=== PATIENT | male | born 1980 | race Caucasian/White ===

== ENCOUNTER 2018-01-12 11:57 | Emergency (ER) | payer SELFPAY ==
[~2018-01-12] VITALS: Ht 167.6 cm; Wt 80.0 kg
[2018-01-12 12:05] VITALS: BP 125/74; PULSE 64; RESP 16; TEMP 98.5; O2SAT 98
[2018-01-12] MEDS ORDERED: PENI500T PO (13:01)
--- NOTE | 2018-01-12 13:02 | PD ---
HPI Chief Complaint: Oral / Dental Pain or Problem Time Seen by Provider: 12:54 Travel History International Travel<30 days: No Contact w/Intl Traveler<30days: No Traveled to known affect area: No History of Present Illness HPI 37-year-old male presents emergency department with pain and swelling to the left lower jaw secondary to dental abscess. He states it has been present approximate 4 days. He has been taking [id number] ibuprofen. He had increased sinus congestion and headache today which is why he came in to be seen today. He denies fever, chills, or difficulty swallowing. He is requesting no narcotics as he is in treatment. Pain is currently about a 7 out of 10. He has no known drug allergies. [facility] Social History Alcohol Use: No Tobacco Use: No Substance Use: No Allergies-Medications (Allergen,Severity, Reaction): Coded Allergies: No Known Allergies (Unverified , 01/12/18) Reported Meds & Prescriptions Reported Meds & Active Scripts Active Penicillin V Potassium 500 Mg Tab 500 Mg PO Q6H 10 Days Review of Systems Except as stated in HPI: all other systems reviewed are Neg General / Constitutional: No: Fever Eyes: No: Visual changes HENT: Positive: Congestion, Dental Difficulties, No: Headaches, Vertigo, Lightheadedness, Sore Throat, Rhinitis, Rhinorrhea, Nosebleed, Neck Stiffness, Neck Pain, Earache Cardiovascular: No: Chest Pain or Discomfort Respiratory: No: Shortness of Breath Gastrointestinal: No: Abdominal Pain Genitourinary: No: Dysuria Musculoskeletal: No: Pain Skin: No Rash Neurologic: No: Weakness Psychiatric: No: Depression Endocrine: No: Polydipsia Hematologic/Lymphatic: No: Easy Bruising Physical Exam Narrative GENERAL: Patient appears in mild distress. SKIN: Warm and dry. Normal color. Normal turgor. No erythema. No rash. HEAD: Atraumatic. Normocephalic. Patient is swelling over the left lower jaw. EYES: Pupils equal and round. No scleral icterus. No injection or drainage. ENT: No nasal bleeding or discharge. Mucous membranes pink and moist. TMs are clear bilaterally. Patient has poor dental health with multiple caries and lost teeth. He has a obvious abscess to the left lower jaw involving the #17 tooth. Airways patent. Pharynx is clear. NECK: Trachea midline. Supple and nontender without significant lymphadenopathy. CARDIOVASCULAR: Regular rate and rhythm. RESPIRATORY: No accessory muscle use. Clear to auscultation. Breath sounds equal bilaterally. MUSCULOSKELETAL: Extremities without clubbing, cyanosis, or edema. No obvious deformities. NEUROLOGICAL: Awake and alert. No obvious cranial nerve deficits. Motor grossly within normal limits. Five out of 5 muscle strength in the arms and legs. Normal speech. PSYCHIATRIC: Appropriate mood and affect; insight and judgment normal. Data Data Last Documented VS Vital Signs Date Time Temp Pulse Resp B/P (MAP) Pulse Ox O2 Delivery O2 Flow Rate FiO2 01/12/18 12:05 98.5 64 16 125/74 (91) 98 MDM Medical Decision Making Medical Screen Exam Complete: Yes Emergency Medical Condition: Yes Differential Diagnosis Dental pain. Dental abscess. Need for antibiotics. Narrative Course Patient will be treated with Pen-Vee K 500 mg 4 times daily for 10 days. Patient can continue with ibuprofen as previously taking. Patient to follow with dental resources as soon as possible. Patient can return with worsening symptoms as needed. Diagnosis Primary Impression: Dental abscess Referrals: Dentist Patient Instructions: Dental Abscess (ED), General Instructions Additional Instructions: Patient will be treated with Pen-Vee K 500 mg 4 times daily for 10 days. Patient can continue with ibuprofen as previously taking. Patient to follow with dental resources as soon as possible. Patient can return with worsening symptoms as needed. Med/Other Pt SpecificInfo: Prescription(s) given Scripts Penicillin V Potassium (Penicillin V Potassium) 500 Mg Tab 500 MG PO Q6H for Infection for 10 Days, #40 TAB 0 Refills Prov: Gilles Jean MD 01/12/18 Disposition: 01 DISCHARGE HOME Condition: Stable Rishabh Mota Jan 12, 2018 13:02
== END 2018-01-12 13:28 | disposition home or self-care (01) ==
LOC: NEPD 11:57
DX: K04.7 Periapical abscess without sinus (principal)
CPT/HCPCS: 99283